=== PATIENT | male | born 1990 | race Hispanic/Latino ===

== ENCOUNTER → 2022-05-27 | Day surgery (SDC) | payer BC ==
[~2022-05-27] MED LIST: DEXAMETHASONE SOD PHOS 10 MG/1 ML VIAL ONE; FENTANYL CITRATE/PF 100MCG/2 ML INJ ONE; IOPAMIDOL 200 MG/ML 20 ML VIAL IT ONE; LIDOCAINE HCL 1% 30ML-PF VIAL ONE; MIDAZOLAM HCL 2 MG/2 ML VIAL ONE; POVIDONE IODINE 0.05% 0.05 % ML PO ONE; PROPOFOL IV EMULSION 10 MG/ML 20 ML VIAL ONE; TESTOSTERONE PO
[2022-05-27 06:50] VITALS: BP 115/69
== END | disposition home or self-care (01) ==
LOC: OR 07:42
PROVIDERS: ATTEND Physical Medicine & Rehabilitation Pain Medicine
DX: M54.16 Radiculopathy, lumbar region (principal); M51.26 Other intervertebral disc displacement, lumbar region; R93.7 Abnormal findings on diagnostic imaging of other parts of musculoskeletal system; Z01.812 Encounter for preprocedural laboratory examination; Z20.822 Contact with and (suspected) exposure to COVID-19
CPT/HCPCS: 0223U; 36415; 64483; 64484; 76000; J1100; J2001; J2250; J2704; J3010; Q9967

== ENCOUNTER 2022-11-23 17:29 | Emergency (ER) | payer BC, OTHER ==
[~2022-11-23] VITALS: Ht 177.8 cm; Wt 83.9 kg
[~2022-11-23 17:29] MED LIST changes: -DEXAMETHASONE SOD PHOS 10 MG/1 ML VIAL ONE; -FENTANYL CITRATE/PF 100MCG/2 ML INJ ONE; -IOPAMIDOL 200 MG/ML 20 ML VIAL IT ONE; -LIDOCAINE HCL 1% 30ML-PF VIAL ONE; -MIDAZOLAM HCL 2 MG/2 ML VIAL ONE; -POVIDONE IODINE 0.05% 0.05 % ML PO ONE; -PROPOFOL IV EMULSION 10 MG/ML 20 ML VIAL ONE
[2022-11-23] MEDS ORDERED: HYDROCODONE/APAP 10MG-325MG TAB PO ONE (18:30)
[2022-11-23 19:04] LABS: CLARITY,URINE CLEAR (CLEAR); COLOR,URINE YELLOW (YELLOW); KETONES,URINE NEGATIVE (NEGATIVE); LEUKOCYTE ESTERASE ,URINE NEGATIVE (NEGATIVE); NITRITE,URINE NEGATIVE (NEGATIVE); PROTEIN,URINE DIPSTICK NEGATIVE (NEGATIVE); URINE UROBILINOGEN 0.2 mg/dL (0.2 - 1)
[2022-11-23 19:13] LABS: RBC,URINE 0-5 /HPF (0-5); WBC,URINE (MAN) 0-5 /HPF (0-5)
[2022-11-23] MEDS ORDERED: NAPROSYN500 MG PO (19:31)
[2022-11-23] MEDS ORDERED: ORPHENADRINE C100 MG PO (19:31)
[2022-11-23 20:25] VITALS: BP 122/66
== END 2022-11-23 20:20 | disposition home or self-care (01) ==
LOC: ER 17:33
DX: S30.0XXA Contusion of lower back and pelvis, initial encounter (principal); S39.012A Strain of muscle, fascia and tendon of lower back, initial encounter; G89.29 Other chronic pain; W14.XXXA Fall from tree, initial encounter; Y92.89 Other specified places as the place of occurrence of the external cause
CPT/HCPCS: 71046; 72040; 72070; 72100; 72170; 81001; 99283